=== PATIENT | male | born 1940 | race Hispanic/Latino ===

== ENCOUNTER 2019-06-26 16:29 | Inpatient (IN) | payer MEDICAID ==
[2019-06-26 17:25] LABS: Absolute Lymphocytes (CBC) 0.7 K/uL (0.7-4.9); Basophils % 0.6 % (0-1.3); Hematocrit 37.8 % (39.6-49.0); Lymphocytes % 11.4 % (15.3-44.8); MPV 8.8 fL (7.6-11.3); RBC Red Blood Cell Count 4.09 M/uL (4.33-5.43)
[2019-06-26 17:29] LABS: Protime INR 1.1
[2019-06-26 17:45] LABS: Bilirubin Direct 0.2 mg/dL (0-0.2); Bilirubin Total 0.6 mg/dL (0.2-1.0); Magnesium 2.3 mg/dL (1.8-2.4); Protein, Total 6.8 g/dL (6.4-8.2); Troponin (Emerg Dept Use Only) 0.02 ng/mL (0.0-0.045)
--- NOTE | 2019-06-26 17:56 | RAD REPORT ---
EXAM DESCRIPTION: RAD - Chest Single View - 06/26/2019 5:10 pm CLINICAL HISTORY: CHEST PAIN COMPARISON: No comparisons TECHNIQUE: AP portable chest image was obtained 06/26/2019 5:10 pm . FINDINGS: Lungs are clear. Heart size is upper normal. Vasculature within normal limits. Single lead pacemaker/ defibrillator in place. No measurable pleural effusion and no pneumothorax. No acute bony abnormality seen. No acute aortic findings suspected. IMPRESSION: No acute cardiopulmonary process. Heart size upper normal with no other findings of failure or volume overload.
--- NOTE | 2019-06-26 18:52 | RAD REPORT ---
EXAM DESCRIPTION: CT - Chest Abdomen Pelvis W Cont - 06/26/2019 6:37 pm CLINICAL HISTORY: Right-sided chest pain, right-sided flank and abdomen pain COMPARISON: Chest film June 26 TECHNIQUE: Following dynamic enhancement using 100 milliliters nonionic IV contrast, axial imaging o f the chest, abdomen and pelvis was performed. Biphasic technique was utilized through the abdomen. Oral contrast was administered. All CT scans are performed using dose optimization technique as appropriate and may include automated exposure control or mA/KV adjustment according to patient size. FINDINGS: Minimal bilateral pleural effusions are present with a minimal amount of adjacent atelecta sis. No mass or consolidations seen. No pleural effusion, pleural thickening or pneumothorax. No sign ificant aortic or pulmonary arterial tree finding. Mediastinal and hilar regions show no mass or abno rmal lymphadenopathy. No chest wall mass or axillary lymphadenopathy. The liver, spleen and pancreas show no suspicious findings. Gallbladder and biliary tree are unremark able. Gallstones can be occult on CT imaging. No hydronephrosis present. No obstructing or nonobstructing calculi seen. A few small patchy areas of diminished enhancement are noted in the upper right kidney. Left kidney shows very pronounced dimini shed enhancement throughout the majority of the left renal parenchyma. No mass lesion identifiable. T here is slight thickening and enhancement of the rodríguez of the left renal pelvis. No urinary bladder w all thickening or enhancement seen. Prostatectomy surgical changes are noted. No adrenal abnormalitie s. The exam was not a dedicated CT angio study. Both renal arteries appear to enhance normally far into the renal parenchyma. Overall atherosclerotic disease is relatively mild for the patient's age. No gastric dilatation or gastric wall thickening. No dilated large or small bowel loops. No appendici tis findings. Patient has pronounced diverticulosis without diverticulitis. No free air or pneumatosi s. Trace amount of free fluid in the dependent portion of the pelvis. No mass or bulky lymphadenopathy. Left inguinal hernia changes are present without an acute component . Disc and bone degenerative changes are present. No acute or destructive bone process. No significant vascular findings. IMPRESSION: Very significant abnormally diminished enhancement throughout most of the left renal par enchyma with much smaller areas of abnormal enhancement in the right kidney. Findings are most likely mild right-side and pronounced left-sided pyelonephritis along with mild lef t ureteritis. Correlation is needed with any clinical or laboratory findings. Both kidneys appear to have a normal arterial tree enhancement pattern. Ischemic etiology for the dim inished perfusion is not suspected. Small bilateral pleural effusions are present with minimal atelectasis.
[2019-06-26] MEDS ORDERED: CEFTRIAXONE/SWI 1gm 1 GM/10 ML SYR ONE (19:14)
--- NOTE | 2019-06-26 19:20 | EDPHYS ---
Physician Documentation [facility] Name: Raymundo Maldonado Age: 78 yrs Sex: Male : 1940 Arrival Date: 06/26/2019 Time: 16:32 Bed 2 Private MD: ED Physician Jimmy Ordaz HPI: 06/26 17:55 This 78 yrs old Male presents to ER via Ambulatory with complaints of kdr Shortness Of Breath, Low Back Pain, Irregular Pulse. 17:55 The patient went to [facility] with c/o flank pain and weakness, dark stools. kdr Onset: The symptoms/episode began/occurred at an unknown time. Severity of symptoms: At their worst the symptoms were mild in the emergency department the symptoms are unchanged. The patient has not experienced similar symptoms in the past. It is unknown whether or not the patient has recently seen a physician. Historical: - Allergies: 16:48 No Known Allergies; ca1 - Home Meds: 18:01 metoprolol succinate 25 mg oral Tb24 1 tab once daily [Active]; atorvastatin 40 mg oral em tab 1 tab once daily [Active]; amiodarone 100 mg Oral tab 1 tab once daily [Active]; - Immunization history:: Adult Immunizations not up to date. - Coronavirus screen:: The patient has NOT traveled to [place], [place], or [place] in the past 14 days. The patient has NOT had contact with known/suspected case of Coronavirus?. - Social history:: Smoking status: Patient denies any tobacco usage or history of. - Ebola Screening: : Patient negative for fever greater than or equal to 101.5 degrees Fahrenheit, and additional compatible Ebola Virus Disease symptoms Patient denies exposure to infectious person Patient denies travel to an Ebola-affected area in the 21 days before illness onset No symptoms or risks identified at this time. ROS: 17:55 Constitutional: Negative for fever, chills, and weight loss, Eyes: Negative for injury, kdr pain, redness, and discharge, ENT: Negative for injury, pain, and discharge, Neck: Negative for injury, pain, and swelling, MS/Extremity: Negative for injury and deformity, Skin: Negative for injury, rash, and discoloration, Neuro: Negative for headache, weakness, numbness, tingling, and seizure activity. Psych: Negative for depression, anxiety, suicide ideation, homicidal ideation, and hallucinations, Allergy/Immunology: Negative for hives, rash, and allergies, Endocrine: Negative for neck swelling, polydipsia, polyuria, polyphagia, and marked weight changes, Hematologic/Lymphatic: Negative for swollen nodes, abnormal bleeding, and unusual bruising. 17:55 Cardiovascular: Positive for Chest discomfort. Exam: 17:51 Constitutional: This is a well developed, well nourished patient who is awake, alert, kdr and in no acute distress. Head/Face: Normocephalic, atraumatic. Eyes: Pupils equal round and reactive to light, extra-ocular motions intact. Lids and lashes normal. Conjunctiva and sclera are non-icteric and not injected. Cornea within normal limits. Periorbital areas with no swelling, redness, or edema. Neck: Trachea midline, no thyromegaly or masses palpated, and no cervical lymphadenopathy. Supple, full range of motion without nuchal rigidity, or vertebral point tenderness. No Meningismus. Chest/axilla: Normal chest wall appearance and motion. Nontender with no deformity. No lesions are appreciated. Respiratory: Lungs have equal breath sounds bilaterally, clear to auscultation and percussion. No rales, rhonchi or wheezes noted. No increased work of breathing, no retractions or nasal flaring. Abdomen/GI: Soft, non-tender, with normal bowel sounds. No distension or tympany. No guarding or rebound. No evidence of tenderness throughout. Back: No spinal tenderness. No costovertebral tenderness. Full range of motion. Skin: Warm, dry with normal turgor. Normal color with no rashes, no lesions, and no evidence of cellulitis. MS/ Extremity: Pulses equal, no cyanosis. Neurovascular intact. Full, normal range of motion. Neuro: Awake and alert, GCS 15, oriented to person, place, time, and situation. Cranial nerves II-XII grossly intact. Motor strength 5/5 in all extremities. Sensory grossly intact. Cerebellar exam normal. Normal gait. Psych: Awake, alert, with orientation to person, place and time. Behavior, mood, and affect are within normal limits. 17:51 Cardiovascular: Rate: bradycardic, Rhythm: Paced. Vital Signs: 16:48 BP 132 / 41; Pulse 42; Resp 17 S; Temp 97.1(TE); Pulse Ox 99% on R/A; ca1 17:30 BP 155 / 72; Pulse 41; Resp 18; Pulse Ox 99% on R/A; em 18:21 BP 156 / 58; Pulse 40; Resp 19; Pulse Ox 99% on R/A; Pain 0/10; em 20:18 BP 155 / 61; Pulse 42; Resp 18; Temp 97.6; Pulse Ox 100% ; ea 20:58 BP 149 / 87; Pulse 50; Resp 18; Pulse Ox 100% ; ea 21:30 BP 156 / 50; Pulse 40; Resp 18; Temp 97.2; Pulse Ox 99% on R/A; ea 22:15 BP 163 / 64; Pulse 41; Resp 18; Pulse Ox 98% on R/A; Pain 0/10; ea MDM: 17:51 Data reviewed: vital signs, nurses notes, lab test result(s), radiologic studies. kdr Counseling: I had a detailed discussion with the patient and/or guardian regarding: the historical points, exam findings, and any diagnostic results supporting the discharge/admit diagnosis, lab results, radiology results. 19:19 Patient medically screened. [facility] 06/26 16:53 Order name: Basic Metabolic Panel; Complete Time: 17:58 kdr 06/26 16:53 Order name: CBC with Diff; Complete Time: 17:58 kdr 06/26 16:53 Order name: LFT's; Complete Time: 17:58 kdr 06/26 16:53 Order name: Magnesium; Complete Time: 17:58 kdr 06/26 16:53 Order name: NT PRO-BNP; Complete Time: 17:58 kdr 06/26 16:53 Order name: PT-INR; Complete Time: 17:58 kdr 06/26 16:53 Order name: Troponin (emerg Dept Use Only); Complete Time: 17:58 kdr 06/26 19:07 Order name: Urine Culture kdr 06/26 20:12 Order name: Urinalysis W/Microscopic EDMS 06/26 20:19 Order name: CBC with Automated Diff EDMS 06/26 20:19 Order name: CBC with Automated Diff EDMS 06/26 20:19 Order name: Comprehensive Metabolic Panel EDMS 06/26 20:19 Order name: Comprehensive Metabolic Panel EDMS 06/26 20:19 Order name: T4 Free EDMS 06/26 16:53 Order name: XRAY Chest (1 view); Complete Time: 18:37 [facility] 06/26 16:53 Order name: EKG; Complete Time: 16:54 [facility] 06/26 16:53 Order name: Cardiac monitoring; Complete Time: 17:31 [facility] 06/26 16:53 Order name: EKG - Nurse/Tech; Complete Time: 17:32 [facility] 06/26 16:53 Order name: IV Saline Lock; Complete Time: 17:32 [facility] 06/26 16:53 Order name: Labs collected and sent; Complete Time: 17:42 [facility] 06/26 16:53 Order name: O2 Per Protocol; Complete Time: 17:42 [facility] 06/26 18:05 Order name: Chest Abdomen Pelvis W Cont; Complete Time: 19:04 [facility] 06/26 20:19 Order name: CONS Pharmacy Consult [facility] 06/26 20:19 Order name: CONS Physician Consult [facility] 06/26 20:19 Order name: Heart Healthy [facility] 06/26 20:19 Order name: T4 Free [facility] 06/26 20:19 Order name: Thyroid Stimulating Hormone [facility] 06/26 20:19 Order name: Thyroid Stimulating Hormone [facility] 06/26 16:53 Order name: O2 Sat Monitoring; Complete Time: 17:42 kdr EC:51 Rate is 46 beats/min. Rhythm is regular, Sinus bradycardia with No ectopy, Ventricular kdr paced. Clinical impression: Complete heart block and Ventricular Paced Rhythm. Administered Medications: 19:24 Drug: Rocephin - (cefTRIAXone) 1 grams Route: IVPB; Infused Over: 30 mins; Site: right ea antecubital; 19:48 Follow up: Response: No adverse reaction; IV Status: Completed infusion ea Disposition: 06/26/19 19:19 Hospitalization ordered by Vilma Yang for Inpatient Admission. Preliminary diagnosis are Chest pain on breathing, Pyelonephitis. - Bed requested for Telemetry/MedSurg (Inpatient). - Status is Inpatient Admission. ea - Condition is Fair. - Problem is new. - Symptoms have improved. UTI on Admission? Yes Signatures: Dispatcher [employer] [facility] Jimmy Ordaz MD MD kdr Munoz, Edgar, RN Felicita Lewis RN Queenie Paige RN RN ea Acob, Cheryl RN RN ca1 Corrections: (The following items were deleted from the chart) 18:05 18:00 Chest Abdomen W/ Con+CT.RAD.BRZ ordered. EDMS EDMS 21:25 19:19 Hospitalization Ordered by Vilma Yang MD for Inpatient Admission. Preliminary cg diagnosis is Chest pain on breathing; Pyelonephitis. Bed requested for Telemetry/MedSurg (Inpatient). Status is Inpatient Admission. Condition is Fair. Problem is new. Symptoms have improved. UTI on Admission? Yes. [facility] 22:24 21:25 06/26/2019 19:19 Hospitalization Ordered by Vilma Yang MD for Inpatient ea Admission. Preliminary diagnosis is Chest pain on breathing; Pyelonephitis. Bed requested for Telemetry/MedSurg (Inpatient). Status is Inpatient Admission. Condition is Fair. Problem is new. Symptoms have improved. UTI on Admission? Yes. cg
--- NOTE | 2019-06-26 19:20 | ER ---
Nurse's Notes [facility] Name: Raymundo Maldonado Age: 78 yrs Sex: Male : 1940 Arrival Date: 06/26/2019 Time: 16:32 Bed 2 Private MD: Diagnosis: Chest pain on breathing;Pyelonephitis Presentation: 06/26 16:42 Presenting complaint: Patient states: Went ot [facility] for R sided ca1 flank pain. Sent to the ER for HR of 41 and BP 149/61. Pt c/o chest discomfort, dizzy, lightheaded, and very weak. Reports N/V. Pt has a pacemaker. Transition of care: patient was not received from another setting of care. Onset of symptoms was June 26, 2019. Risk Assessment: Do you want to hurt yourself or someone else? Patient reports no desire to harm self or others. Initial Sepsis Screen: Does the patient meet any 2 criteria? No. Patient's initial sepsis screen is negative. Does the patient have a suspected source of infection? No. Patient's initial sepsis screen is negative. Care prior to arrival: None. 16:42 Method Of Arrival: Ambulatory ca1 16:42 Acuity: GREGORY 2 ca1 Historical: - Allergies: 16:48 No Known Allergies; ca1 - Home Meds: 18:01 metoprolol succinate 25 mg oral Tb24 1 tab once daily [Active]; atorvastatin 40 mg oral em tab 1 tab once daily [Active]; amiodarone 100 mg Oral tab 1 tab once daily [Active]; - Immunization history:: Adult Immunizations not up to date. - Coronavirus screen:: The patient has NOT traveled to [place], [place], or [place] in the past 14 days. The patient has NOT had contact with known/suspected case of Coronavirus?. - Social history:: Smoking status: Patient denies any tobacco usage or history of. - Ebola Screening: : Patient negative for fever greater than or equal to 101.5 degrees Fahrenheit, and additional compatible Ebola Virus Disease symptoms Patient denies exposure to infectious person Patient denies travel to an Ebola-affected area in the 21 days before illness onset No symptoms or risks identified at this time. Screenin:00 Abuse screen: Denies threats or abuse. Nutritional screening: No deficits noted. em Tuberculosis screening: No symptoms or risk factors identified. Fall Risk None identified. Assessment: 17:00 General: Appears in no apparent distress. comfortable, Behavior is calm, cooperative, em Denies fever. Pain: Complains of pain in chest. Neuro: Level of Consciousness is awake, alert, obeys commands, Oriented to person, place, time, situation, Appropriate for age Reports dizziness. Cardiovascular: Reports chest pain, nausea, Rhythm is sinus bradycardia. Respiratory: Airway is patent Respiratory effort is even, unlabored, Breath sounds are clear bilaterally. Denies cough. GI: Abdomen is flat, Reports bloating, nausea, dark stools for 4-5 days. Derm: Skin is intact, is thin, Skin is pink, warm \T\ dry. Musculoskeletal: Capillary refill < 3 seconds, Range of motion: intact in all extremities. 17:56 Reassessment: Patient appears in no apparent distress at this time. Patient and/or em family updated on plan of care and expected duration. Pain level reassessed. Patient is alert, oriented x 3, equal unlabored respirations, skin warm/dry/pink. 19:10 General: Appears comfortable, Behavior is appropriate for age. Pain: Denies pain. ea Neuro: Level of Consciousness is awake, alert, obeys commands, Oriented to person, place, time, situation. Cardiovascular: Patient's skin is warm and dry. Respiratory: Airway is patent Respiratory effort is even, unlabored. Derm: Skin is pink, warm \T\ dry. Musculoskeletal: Circulation, motion, and sensation intact. 20:18 Reassessment: Patient and/or family updated on plan of care and expected duration. Pain ea level reassessed. Patient is alert, oriented x 3, equal unlabored respirations, skin warm/dry/pink. 20:57 Reassessment: Patient and/or family updated on plan of care and expected duration. Pain ea level reassessed. Patient is alert, oriented x 3, equal unlabored respirations, skin warm/dry/pink. Awaiting on room assignment. 21:50 Reassessment: Patient and/or family updated on plan of care and expected duration. Pain ea level reassessed. Patient is alert, oriented x 3, equal unlabored respirations, skin warm/dry/pink. 22:23 Reassessment: Patient and/or family updated on plan of care and expected duration. Pain ea level reassessed. Patient is alert, oriented x 3, equal unlabored respirations, skin warm/dry/pink. Pt admitted to second floor, left ED via wheelchair per tech, pt tolerating well. No s/s of pain or discomfort noted at this time. Vital Signs: 16:48 BP 132 / 41; Pulse 42; Resp 17 S; Temp 97.1(TE); Pulse Ox 99% on R/A; ca1 17:30 BP 155 / 72; Pulse 41; Resp 18; Pulse Ox 99% on R/A; em 18:21 BP 156 / 58; Pulse 40; Resp 19; Pulse Ox 99% on R/A; Pain 0/10; em 20:18 BP 155 / 61; Pulse 42; Resp 18; Temp 97.6; Pulse Ox 100% ; ea 20:58 BP 149 / 87; Pulse 50; Resp 18; Pulse Ox 100% ; ea 21:30 BP 156 / 50; Pulse 40; Resp 18; Temp 97.2; Pulse Ox 99% on R/A; ea 22:15 BP 163 / 64; Pulse 41; Resp 18; Pulse Ox 98% on R/A; Pain 0/10; ea ED Course: 16:32 Patient arrived in ED. as 16:46 Triage completed. ca1 16:48 Arm band placed on right wrist. ca1 16:52 Jimmy Ordaz MD is Attending Physician. kdr 17:00 Patient has correct armband on for positive identification. Placed in gown. Bed in low em position. Call light in reach. Side rails up X2. ekg monitor tech on. Pulse ox on. NIBP on. 17:10 XRAY Chest (1 view) In Process Unspecified. EDMS 17:15 Initial lab(s) drawn, by me, sent to lab. Inserted saline lock: 20 gauge in right em forearm, using aseptic technique. Blood collected. 17:24 Evan Hagan, RN is Primary Nurse. em 18:37 Chest Abdomen Pelvis W Cont In Process Unspecified. EDMS 19:18 Vilma Yang MD is Hospitalizing Provider. kdr 20:58 No provider procedures requiring assistance completed. Patient admitted, IV remains in ea place. Administered Medications: 19:24 Drug: Rocephin - (cefTRIAXone) 1 grams Route: IVPB; Infused Over: 30 mins; Site: right ea antecubital; 19:48 Follow up: Response: No adverse reaction; IV Status: Completed infusion kerri Outcome: 19:19 Decision to Hospitalize by Provider. kdr 20:58 Instructed on the need for admit. kerri 22:18 Admitted to Med/surg accompanied by tech, room 225, with chart, Report called to Mandi manning RN 22:18 Condition: stable 22:24 Patient left the ED. kerri Signatures: Dispatcher [employer] EDJimmy Guzman MD MD kdr Munoz, Edgar, RN RN Chantel Vergara Elena, RN RN ea Acob, Cheryl RN RN ca1
[2019-06-26] MEDS ORDERED: ACETAMINOPHEN 500 MG TAB PO PRN (20:13)
[2019-06-26] MEDS ORDERED: MORPHINE 4 MG/ML SYR IV PRN (20:13)
[2019-06-26] MEDS: NA CHLORIDE 0.9% 1,000 ML IV SCH (23:48)
[2019-06-27 00:08] VITALS: BMI 25.0
[2019-06-27 01:57] LABS: Urine Appearance CLEAR; Urine Bilirubin NEGATIVE (NEG); Urine Blood TRACE (NEG); Urine Color YELLOW; Urine Glucose NEGATIVE (NEG); Urine Protein NEGATIVE (NEG); Urine Specific Gravity >=1.030 (1.005-1.030); Urine Urobilinogen 0.2 mg/dL (0.2-1.0)
[2019-06-27 03:39] LABS: Urine Bacteria <20 /HPF (NONE SEEN); Urine Culture Reflex Order NOT NEEDED; Urine RBC <5 /HPF (NONE SEEN)
[2019-06-27] MEDS ORDERED: PNEUMOCOCCAL VACCINE 0.5 ML IMVAC ONE (06:00)
[2019-06-27] MEDS ORDERED: INFLUENZA VACCINE (for 3y+) 0.5 ML DOSE IMVAC ONE (06:00)
[2019-06-27 06:18] LABS: Absolute Lymphocytes (CBC) 0.6 K/uL (0.7-4.9); Basophils % 0.7 % (0-1.3); Lymphocytes % 9.4 % (15.3-44.8); RBC Red Blood Cell Count 3.81 M/uL (4.33-5.43)
[2019-06-27 07:31] LABS: Albumin 2.6 g/dL (3.4-5.0); Bilirubin Total 0.4 mg/dL (0.2-1.0); Potassium 4.2 mmol/L (3.5-5.1); Protein, Total 6.3 g/dL (6.4-8.2)
[2019-06-27 07:35] LABS: Thyroid Stimulating Hormone 4.13 uIU/mL (0.360-3.740)
--- NOTE | 2019-06-27 07:51 | P.HP ---
Certification for Inpatient Patient admitted to: Inpatient With expected LOS: >2 Midnights Patient will require the following post-hospital care: None Practitioner: I am a practitioner with admitting privileges, knowledge of patient current condition, hospital course, and medical plan of care. Services: Services provided to patient in accordance with Admission requirements found in Title 42 Section 412.3 of the Code of Federal Regulations Patient History Date of Service: 06/26/19 Reason for admission: Bradyarrhythmia/pyelonephritis History of Present Illness: Patient is an 78-year-old gentleman who came into the hospital after being seen at the [place] [facility] with right-sided flank tenderness. Patient has been feeling weak and fatigued. In the clinic they found him to be bradycardic with flank tenderness. He was sent to the emergency room. In the ER he was running with a heart rate in the mid to upper 40s. Patient is on amiodarone and Toprol- XL. These medications may need to be adjusted. He also had the flank tenderness and he had a dedicated CT of the chest abdomen and pelvis. This revealed pyelonephritis bilaterally. However, his urine analysis does not really corroborates that he has any infection in the genitourinary system. Will get a Nephrology consultation and a cardiology consultation for his multiple medical issues on this admission. He will be admitted for an inpatient stay as well. Will go ahead and start him on IV antibiotics at this time. Hold his amiodarone and his Toprol XL. Monitor him on telemetry. His blood pressure is stable and he is not having any secondary issues related to his bradyarrhythmia. Will monitor him on telemetry closely. Allergies No Known Allergies Allergy (Verified 06/26/19 23:46) Home Medications: Amiodarone HCl 1 tab PO DAILY 06/27/19 Atorvastatin Calcium 1 tab PO BEDTIME 06/27/19 Metoprolol Succinate [Toprol Xl] 1 tab PO DAILY 06/27/19 Rivaroxaban [Xarelto*] 1 tab PO BID 06/27/19 - Past Medical/Surgical History Has patient received pneumonia vaccine in the past: No Diabetic: No -: HTN -: Pacemaker -: Prostate surg - Social History Smoking Status: Never smoker Alcohol use: No CD- Drugs: No Caffeine use: No Place of Residence: Home Review of Systems 10-point ROS is otherwise unremarkable Physical Examination - Vital Signs Temperature: 98.8 F Blood Pressure: 138/60 Pulse: 40 Respirations: 16 Pulse Ox (%): 97 - Physical Exam General: Alert, In no apparent distress, Oriented x2 HEENT: Atraumatic, PERRLA, Mucous membr. moist/pink, EOMI, Sclerae nonicteric Neck: Supple, 2+ carotid pulse no bruit, No LAD, Without JVD or thyroid abnormality Respiratory: Clear to auscultation bilaterally, Normal air movement Cardiovascular: Other (bradycardia with systolic ejection murmur 2/6) Gastrointestinal: Normal bowel sounds, Soft and benign, Non-distended, Tenderness (Flank tenderness) Musculoskeletal: No clubbing, No swelling, No tenderness Integumentary: No rashes Neurological: Normal gait, Normal speech, Normal tone, Sensation intact, Cranial nerves 3-12 intact, Normal affect, Abnormal strength Lymphatics: No axilla or inguinal lymphadenopathy - Studies Laboratory Data (last 24 hrs) 06/26/19 17:15: PT 12.9 H, INR 1.10 06/26/19 17:15: WBC 6.2, Hgb 12.5 L, Hct 37.8 L, Plt Count 279 06/26/19 17:15: Sodium 137, Potassium 4.0, BUN 20 H, Creatinine 1.36 H, Glucose 95, Magnesium 2.3, Total Bilirubin 0.6, AST 28, ALT 45, Alkaline Phosphatase 79 Assessment & Plan - Problems (Diagnosis) (1) Pyelonephritis Current Visit: Yes Status: Acute (2) Bradycardia Current Visit: Yes Status: Acute (3) Generalized weakness Current Visit: Yes Status: Acute (4) Acute kidney injury Current Visit: Yes Status: Acute (5) History of pacemaker Current Visit: Yes Status: Acute - Plan Plan: 1. Continue with IV hydration 2. Cardiology and Nephrology consultation 3. IV antibiotic therapy 4. Monitor on telemetry 5. Monitor blood pressure closely 6. Hold amiodarone and Toprol pending cardiology evaluation 7. Check thyroid studies 8. Echocardiogram 9. Urine with microscopy 10. GI and DVT prophylaxis Discharge Plan: Home Plan to discharge in: Greater than 2 days - Advance Directives Does patient have a Living Will: No Does patient have a Durable POA for Healthcare: No - Code Status/Comfort Care Code Status Assessed: Yes Code Status: Full Code Critical Care: No Time Spent Managing PTS Care (In Minutes): 45
[2019-06-27] MEDS ORDERED: CEFTRIAXONE/SWI 1gm 1 GM/10 ML SYR IV SCH (09:00)
--- NOTE | 2019-06-27 09:40 | EKG ---
Test Date: 2019-06-26 Test Time: 16:40:47 Gang Mower Operator: GAURI MEASUREMENT RESULTS: Intervals: Rate: 46 CA: QRSD: 180 QT: 696 QTc: 609 [place]: P: 68 CA: QRS: -63 T: 99 INTERPRETIVE STATEMENTS: Paced rhythm with underlying afib and slow response. Abnormal ECG No previous ECG available for comparison Electronically Signed On 06-27-19 09:39:43 SHIPPING AND RECEIVING SPECIALIST by Alexandro Herndon
[2019-06-27] MEDS: LEVOTHYROXINE SOD 0.025 MG TAB PO SCH (10:01)
[2019-06-27] MEDS: NA CHLORIDE 0.9% 1,000 ML IV SCH ×3 (10:20→23:40)
--- NOTE | 2019-06-27 11:56 | CON ---
Mr. Devante Maldonado is 78 and he came to the hospital and was seen in the emergency room yesterday. Ap parently, he had flank pain and was sent from the [facility]. He had some abdominal pain and fl ank pain. To me, he denies chest pain. He is being treated for pyelonephritis. It seems to be a fi nding mostly on the CAT scan. His urine looks mildly infected. Microbiology is pending. He is bein g treated with ceftriaxone. I am consulted not for that, but because the patient is very bradycardic . He apparently has a history of atrial fib and his outpatient medications had been both metoprolol and amiodarone. Also, rivaroxaban 15 mg b.i.d. The patient does not really tell us he had a blood c lot. Actually, the history is very poor from the patient, but he is on a dose of Xarelto that would be appropriate for somebody who had just had a pulmonary embolus or deep vein thrombosis. I do not h ave any record of that and the patient is unable to tell me. We do not even know how long he has bee n on the Xarelto. It should be no longer than 3 weeks at that dose. The patient denies any history of defibrillator placement or heart surgery or stents in his heart. Physical Examination: General: He is 5 feet 6 inches, 154 pounds. Alert, oriented, pleasant, not in distress. Lungs: Clear. Heart: Bradycardic, otherwise within normal limits. Abdomen: Soft. Extremities: No edema, cyanosis, clubbing. He is in marked sinus bradycardia. I agree with withholding both metoprolol and amiodarone. His TSH is slightly elevated. Certainly, his thyroid dysfunction is not severe enough that it would be the cause of the bradycardia but thyroid dysfunction is common in people taking amiodarone and we should probably supplement his thyroid gland giving levothyroxine. Eventually, he could probably get back o n amiodarone but not metoprolol and probably continue with an appropriate dose of Xarelto, which base d on his renal function would be 20 mg once a day rather than 15 b.i.d. Thank you very much for your kind referral of Mr. Low. I will follow him with you. JENNIFER/JESENIA Voice ID: [id number] Report ID: [id number]
--- NOTE | 2019-06-27 12:04 | P.PN ---
Subjective Date of Service: 06/27/19 Chief Complaint: Bradyarrhythmia/pyelonephritis Patient is complaining of mild left flank pain. He states the pain has significantly improved. He has been AFib. His renal function has improved. He has good appetite. He has no other complaint. Physical Examination - Vital Signs Temperature: 99.5 F Blood Pressure: 124/52 Pulse: 45 Respirations: 18 Pulse Ox (%): 92 - Physical Exam General: Alert, In no apparent distress, Oriented x3 HEENT: Normocephalic, Mucous membr. moist/pink, Sclerae nonicteric Neck: Supple, JVD not distended Respiratory: Clear to auscultation bilaterally, Normal air movement Cardiovascular: No edema, Normal S1 S2, Irregular heart rate/rhythm Gastrointestinal: Normal bowel sounds, Soft and benign, Non-distended, No tenderness, Other (No flank tenderness.) Musculoskeletal: No swelling Integumentary: No rashes Neurological: Normal speech, Normal strength at 5/5 x4 extr - Studies Laboratory Data (last 24 hrs) 06/26/19 17:15: PT 12.9 H, INR 1.10 06/26/19 17:15: WBC 6.2, Hgb 12.5 L, Hct 37.8 L, Plt Count 279 06/26/19 17:15: Sodium 137, Potassium 4.0, BUN 20 H, Creatinine 1.36 H, Glucose 95, Magnesium 2.3, Total Bilirubin 0.6, AST 28, ALT 45, Alkaline Phosphatase 79 Assessment And Plan - Current Problems (Diagnosis) (1) Acute kidney injury Current Visit: Yes Status: Acute (2) Bradycardia Current Visit: Yes Status: Acute (3) History of pacemaker Current Visit: Yes Status: Acute (4) Pyelonephritis Current Visit: Yes Status: Acute - Plan Patient seen by nephrology. Renal ultrasound has been ordered. Continue IV Rocephin Continue to hold amiodarone and metoprolol. Cardiology input appreciated. Tsh is mildly elevated indicating some degree of hypothyroidism. Patient started on low dose Synthroid. IV hydration. Monitor renal function.
--- NOTE | 2019-06-27 15:19 | RAD REPORT ---
EXAM DESCRIPTION: US - Renal Ultrasound-Complete - 06/27/2019 3:09 pm CLINICAL HISTORY: PYELONEPH Flank pain COMPARISON: Chest Abdomen Pelvis W Cont dated 06/26/2019 FINDINGS: Both kidneys are normal in size with retained corticomedullary differentiation. The right kidney measures 11.2 x 5.8 x 5.2 cm. No hydronephrosis, focal mass or perinephric fluid. The left kidney measures 10.6 x 4.9 x 4.4 cm. No hydronephrosis, focal mass or perinephric fluid. The urinary bladder is incompletely distended without gross abnormality seen. IMPRESSION: Unremarkable renal sonogram.
[2019-06-27] MEDS: levoFLOXacin 500 MG TAB PO SCH (16:18)
--- NOTE | 2019-06-27 20:02 | CON ---
Date of Consultation: 06/27/2019 Reason For Consultation: Pyelonephritis/abnormality finding on the CAT scan. History Of Present Illness: All the information has been obtained from the record as the patient do not speak [place]. We used the veneer trimmer, but the patient is hardly hearing. So, we used [employer] to translate for patient, apparently had history of cardiac arrhythmia, hypertension, prostate surgery. Patient was in his regular state of health, went to the clinic at [facility] complaining of left flank pain radiating to his groin and patient found to have bradycardia, sent to the emergency room. In t he emergency renal, primary workup showed abnormal parenchyma of both, but more prominent on the left side. For that reason, we have been consulted. Urinalysis did not show UTI. Patient denies any fe jack, but the patient complaining from nausea without vomiting. Patient denied take any nonsteroidal. Reviewing the record for the patient, patient's kidney function, creatinine 1.2 with GFR of 54. Home Medications: Include: 1.Amiodarone. 2.Atorvastatin. 3.Metoprolol. 4.Xarelto. Allergies: NO KNOWN DRUG ALLERGY. Past Medical History: Include: 1.Coronary artery disease. 2.Cardiac arrhythmia, status post pacemaker, on amiodarone. 3.Hypertension. 4.Prostate surgery. Past Surgical History: Include: 1.Prostate surgery. 2.Pacemaker placement. Social History: Denies smoking. Denies drinking. Denies drugs abuse. Review of Systems: Head and Neck: No red eye. No ear pain. GI: Has a flank pain. Has abdominal pain. Has nausea. No vomiting. : Has left flank pain radiating to the groin. No dysuria. Solid Waste Technician: Not applicable. Respiratory: No shortness of breath. Cardiovascular: Has bradycardia. Endocrine: No polydipsia. Skin: No rash. Neuro: No neuropathy. No weakness. Musculoskeletal: Generalized fatigue. Physical Examination: Vital Signs: When I saw the patient, blood pressure 138/60, pulse of 98, bradycardic generally up to 45. Heart: S1, S2. Regular. Abdomen: Soft, nontender. Extremities: No edema. Neurologic: Alert and oriented, nonfocal, difficulty hearing. Laboratory Data: Sodium 140, potassium 4.2, bicarb 24, BUN 26, creatinine 1.2. GFR of 54, calcium o f 8, albumin 2.6. WBC 6.5, H and H of 11.8/35, platelets of 266. Urinalysis, specific gravity above 1.030, negative for protein. Current Medications: In the hospital include: 1.Atorvastatin. 2.Ceftriaxone. 3.Levothyroxine. 4.Normal saline. Assessment And Plan: 1.Acute kidney injury secondary to prerenal, secondary to gastrointestinal loss secondary to nausea, vomiting. I agree with IV hydration and we will monitor. 2.Abnormal finding on the CAT scan. Urinalysis negative for infection. Possible infiltrative disea se. We will go ahead and repeat ultrasound and we will follow up. 3.Questionable gastroenteritis. I am going to discontinue ceftriaxone. Start the patient on Augmen tin and we will follow up culture. Start the patient on Levaquin and we will monitor the patient. 4.Chronic kidney disease secondary to hypertension, nephrosclerosis with acute kidney injury seconda ry to prerenal. We will follow up. RANI Voice ID: [id number] Report ID: [id number]
[2019-06-27] MEDS ORDERED: ATORVASTATIN 40 MG TAB PO SCH (21:00)
[2019-06-28 01:53] VITALS: O2SAT 95
[2019-06-28] MEDS: LEVOTHYROXINE SOD 0.025 MG TAB PO SCH (05:48)
[2019-06-28] MEDS: NA CHLORIDE 0.9% 1,000 ML IV SCH (05:49)
[2019-06-28 06:22] LABS: Albumin 2.6 g/dL (3.4-5.0); Phosphorus 1.8 mg/dL (2.5-4.9); Potassium 4.2 mmol/L (3.5-5.1)
[2019-06-28] MEDS: levoFLOXacin 500 MG TAB PO SCH (08:33)
[2019-06-28 10:10] VITALS: BP 170/68; TEMP 98
--- NOTE | 2019-06-28 13:05 | P.PN ---
Subjective Date of Service: 06/28/19 Chief Complaint: Bradyarrhythmia/pyelonephritis Patient is not complaining of abdominal pain. Also reports several days of black stool. He has been AFib. His renal function has improved. He has good appetite. Physical Examination - Vital Signs Temperature: 98 F Blood Pressure: 170/68 Pulse: 40 Respirations: 18 Pulse Ox (%): 95 - Physical Exam General: Alert, In no apparent distress, Oriented x3 HEENT: Mucous membr. moist/pink, Sclerae nonicteric Neck: Supple, JVD not distended Respiratory: Clear to auscultation bilaterally, Normal air movement Cardiovascular: No edema, Regular rate/rhythm, Normal S1 S2, Other (Bradycardic) Capillary refill: <2 Seconds Gastrointestinal: Normal bowel sounds, Soft and benign, Non-distended, No tenderness Musculoskeletal: No swelling, No erythema Integumentary: No rashes Neurological: Normal speech, Normal strength at 5/5 x4 extr Assessment And Plan - Current Problems (Diagnosis) (1) Acute kidney injury Current Visit: Yes Status: Acute (2) Bradycardia Current Visit: Yes Status: Acute (3) History of pacemaker Current Visit: Yes Status: Acute (4) Pyelonephritis Current Visit: Yes Status: Acute (5) Chronic atrial fibrillation Current Visit: Yes Status: Acute - Plan Patient seen by nephrology. Renal ultrasound reviewed and reported as unremarkable. Antibiotics used to oral levaquin. Patient is slated for 7 days of treatment. Continue to hold amiodarone and metoprolol given persistent bradycardia Cardiology input appreciated. Tsh is mildly elevated indicating some degree of hypothyroidism. Patient started on low dose Synthroid. Renal function has improved. Discontinue IV fluid.
--- NOTE | 2019-06-28 13:35 | P.DS ---
Admission Date: 06/26/19 Discharge Date: 06/28/19 Disposition: ROUTINE DISCHARGE Discharge Condition: FAIR Reason for Admission: Bradyarrhythmia/pyelonephritis Consultations: Cardiology-Dr. Herndon Nephrology-Dr. Ward. - Problems (1) Acute kidney injury Current Visit: Yes Status: Acute (2) Bradycardia Current Visit: Yes Status: Acute (3) History of pacemaker Current Visit: Yes Status: Acute (4) Pyelonephritis Current Visit: Yes Status: Acute (5) Chronic atrial fibrillation Current Visit: Yes Status: Acute Brief History of Present Illness: 78-year-old Israeli-speaking gentleman with a history of chronic atrial fibrillation on amiodarone, metoprolol and Xarelto anticoagulation was referred from [facility] to the ED due to right flank tenderness. CT abdomen and pelvis done in the ED reported findings suggestive of bilateral pyelonephritis. Her urinalysis did not indicate the presence of UTI. Also noted patient was bradycardic with heart rate in the 40s. He was afebrile and no leukocytosis. His serum creatinine was elevated. Patient was admitted for further management. Hospital Course: Patient was hydrated with IV normal saline and treated with IV Rocephin. Urine culture yielded no growth. He was seen and evaluated by nephrology, renal ultrasound done was unremarkable. Other work up for infiltrative kidney disease were requested and the results are pending to be followed. Patient was also seen and evaluated by cardiology, his amiodarone and metoprolol were discontinued due to bradycardia. Noted patient was taking Xarelto 15 mg twice a day. He stated he has been taking the stools for about 3-4 months. Given his current kidney function, Xarelto 20 mg daily was recommended. Patient complained of dark colored stool by his stool for occult blood was negative. No active bleeding. Patient stated his symptoms have resolved. His serum creatinine improved to normal. He is deemed clinically stable for discharged. He is discharged with oral Levaquin to complete 7 days of treatment for UTI. He is informed to follow with Dr. Ward within 2-3 weeks. Vital Signs/Physical Exam: Temp Pulse Resp BP Pulse Ox 98 F 40 L 18 170/68 H 95 06/28/19 13:07 06/28/19 13:07 06/28/19 13:07 06/28/19 13:07 06/28/19 13:07 General: Alert, In no apparent distress, Oriented x3 HEENT: Mucous membr. moist/pink, Sclerae nonicteric Neck: Supple, JVD not distended Respiratory: Clear to auscultation bilaterally, Normal air movement Cardiovascular: No edema, Normal S1 S2, Other (Irregular, bradycardic) Capillary refill: <2 Seconds Gastrointestinal: Normal bowel sounds, Soft and benign, Non-distended, No tenderness, Other (No flank tenderness.) Musculoskeletal: No swelling, No erythema Integumentary: No rashes Neurological: Normal speech, Normal strength at 5/5 x4 extr Laboratory Data at Discharge: WBC 6.5 K/uL (4.3-10.9) 06/27/19 05:42 Hgb 11.8 g/dL (13.6-17.9) L 06/27/19 05:42 Hct 35.0 % (39.6-49.0) L 06/27/19 05:42 Plt Count 266 K/uL (152-406) 06/27/19 05:42 PT 12.9 SECONDS (9.5-12.5) H 06/26/19 17:15 INR 1.10 06/26/19 17:15 Sodium 140 mmol/L (136-145) 06/28/19 05:28 Potassium 4.2 mmol/L (3.5-5.1) 06/28/19 05:28 BUN 15 mg/dL (7-18) 06/28/19 05:28 Creatinine 1.30 mg/dL (0.55-1.3) 06/28/19 05:28 Glucose 87 mg/dL (74-106) 06/28/19 05:28 Phosphorus 1.8 mg/dL (2.5-4.9) L 06/28/19 05:28 Magnesium 2.3 mg/dL (1.8-2.4) 06/26/19 17:15 Total Bilirubin 0.4 mg/dL (0.2-1.0) 06/27/19 05:42 AST 19 U/L (15-37) 06/27/19 05:42 ALT 36 U/L (12-78) 06/27/19 05:42 Alkaline Phosphatase 68 U/L (45-117) 06/27/19 05:42 Home Medications: Atorvastatin Calcium 1 tab PO BEDTIME 06/27/19 Levothyroxine Sodium 25 mcg PO DAILY #30 tablet 06/28/19 Rivaroxaban [Xarelto] 20 mg PO DAILY #30 tablet 06/28/19 levoFLOXacin [Levaquin*] 500 mg PO DAILY #5 tab 06/28/19 New Medications: levoFLOXacin [Levaquin*] 500 mg PO DAILY #5 tab Levothyroxine Sodium 25 mcg PO DAILY #30 tablet Rivaroxaban [Xarelto] 20 mg PO DAILY #30 tablet Diet: AHA Activity: Fall precautions Followup: Shivani Dyson MD [ACTIVE - CAN ADMIT] - 1-2 Weeks Alexandro Herndon MD [ACTIVE - CAN ADMIT] - 1 Week Time spent managing pt's care (in minutes): 40
--- NOTE | 2019-06-28 17:58 | PN ---
Date of Progress Note: 06/28/2019 Mr. Low is 78, was admitted initially with pyelonephritis and was found to have significant christy cardia. Today, his amiodarone has been held and beta-wilner has been held. Thyroid medication had been started. He is on Xarelto 20 mg daily. His heart rate today is in the 60. Continue present re gimen. He can go home whenever it is okay with Dr. Thurston. IGNACIO/JESENIA Voice ID: [id number] Report ID: [id number]
--- NOTE | 2019-06-29 02:17 | PN ---
Date of Progress Note: 06/28/2019 History: Patient was admitted with UTI. CT show abnormal infiltration for the kidney. Repeated ult rasound came within normal limit. Physical Examination: Vital Signs: When I saw the patient, blood pressure of 158/67, pulse of 88. Chest: Clear to auscultation. Heart: S1, S2, regular. Abdomen: Soft, nontender. Extremities: No edema. Imaging: Ultrasound within normal limit. Laboratory Data: H and H 11.8 and 35. Sodium 140, potassium 4.2 bicarb 25, BUN 15, creatinine 1.3, GFR of 53, calcium 8, magnesium 1.8. Assessment And Plan: 1.Hypertension, controlled, optimal. Continue current medication. 2.Abnormal finding on the CT. Repeat ultrasound did not show any infiltration. We are waiting for serum protein electrophoresis. We will follow up as outpatient. Patient cleared from the renal [facility] for discharge planning. To follow up in the office in 2-3 weeks. RANI Voice ID: [id number] Report ID: [id number]
[2019-07-02 06:06] LABS: Albumin, (SPE) 2.8 g/dL (3.8-4.8); Alpha-1-Globulins 0.3 g/dL (0.2-0.3); Alpha-2-Globulins 0.7 g/dL (0.5-0.9); INTERPRETATION REPORT
== END 2019-06-28 14:30 | disposition home or self-care (01) | DRG 690 ==
LOC: ER 16:29 → ERHOLD 20:37 → 2ND 22:01
PROVIDERS: ADMIT Hospitalist; ATTEND Internal Medicine
DX: N10 Acute pyelonephritis (principal); I48.20 Chronic atrial fibrillation, unspecified; N17.9 Acute kidney failure, unspecified; N18.9 Chronic kidney disease, unspecified; I12.9 Hypertensive chronic kidney disease with stage 1 through stage 4 chronic kidney disease, or unspecified chronic kidney disease; I25.10 Atherosclerotic heart disease of native coronary artery without angina pectoris; R53.1 Weakness; K52.9 Noninfective gastroenteritis and colitis, unspecified; Z95.0 Presence of cardiac pacemaker
CPT/HCPCS: 36415; 71045; 71260; 74177; 76770; 80048; 80053; 80069; 80076; 81001; 82274; 83735; 83880; 84165; 84439; 84443; 84484; 85025; 85610; 87086; 87088; 93005; 96365; 99285; J0696; J7030; Q9967

== ENCOUNTER 2019-09-06 18:22 | Observation (INO) | payer MEDICAID, SELFPAY ==
--- OUTSIDE RECORDS SUMMARY | 2019-09-06 18:25 | XMS REPORT ---
:1940 [address] [facility] t Address [facility] [place] [address] Care Team Providers Name Role Phone Unavailable Unavailable Unavailable Problems This patient has no known problems. Allergies, Adverse Reactions, Alerts This patient has no known allergies or adverse reactions. Medications This patient has no known medications.
[2019-09-06 19:14] LABS: Absolute Lymphocytes (CBC) 1.1 K/uL (0.7-4.9); Basophils % 0.3 % (0-1.3); Lymphocytes % 15.1 % (15.3-44.8); MPV 9.2 fL (7.6-11.3); RBC Red Blood Cell Count 4.14 M/uL (4.33-5.43)
[2019-09-06 19:23] LABS: Protime INR 1.24
[2019-09-06 19:33] LABS: ALT/SGPT 22 U/L (12-78); AST/SGOT 14 U/L (15-37); Albumin 3.4 g/dL (3.4-5.0); Alkaline Phosphatase 72 U/L (45-117); BUN Blood Urea Nitrogen 17 mg/dL (7-18); Bicarbonate 29 mmol/L (21-32); Bilirubin Direct 0.3 mg/dL (0-0.2); Bilirubin Total 0.9 mg/dL (0.2-1.0); Glucose Level 89 mg/dL (74-106); Magnesium 2.2 mg/dL (1.8-2.4); NT PRO-BNP 1304 pg/mL (<450); Potassium 3.4 mmol/L (3.5-5.1); Protein, Total 7.1 g/dL (6.4-8.2); Sodium Level 136 mmol/L (136-145); Troponin (Emerg Dept Use Only) < 0.02 ng/mL (0.0-0.045)
[2019-09-06] MEDS ORDERED: ASPIRIN 81 MG CHEWABLE TABLET ONE (19:58)
--- NOTE | 2019-09-06 20:03 | RAD REPORT ---
EXAM DESCRIPTION: RAD - Chest Single View - 09/06/2019 7:56 pm CLINICAL HISTORY: CHEST PAIN Chest pain. COMPARISON: Chest Single View dated 06/26/2019 FINDINGS: Portable technique limits examination quality. The lungs are grossly clear. The heart is normal in size. No displaced fractures.Single lead pacer/de fibrillator device noted. Portion of the left upper lobe is obscured by the pacer pack. IMPRESSION: No acute intrathoracic process suspected.
[2019-09-06] MEDS ORDERED: ALPRAZOLAM 0.25 MG TABLET PO PRN (20:52)
[2019-09-06] MEDS ORDERED: ACETAMINOPHEN 500 MG TAB PO PRN (20:52)
[2019-09-06] MEDS ORDERED: MORPHINE 4 MG/ML SYR IV PRN (20:52)
--- NOTE | 2019-09-06 21:30 | ER ---
Nurse's Notes [facility] Name: Raymundo Maldonado Age: 79 yrs Sex: Male : 1940 Arrival Date: 09/06/2019 Time: 18:24 Bed 6 Private MD: Diagnosis: Chest pain on breathing Presentation: 09/05 18:29 Chief complaint: Patient's son or daughter states: chest pain since yesterday, aa5 specially when taking a deep breath. Pt also reports slight cough but son reports it's pt's baseline. 18:29 Coronavirus screen: Surgical mask placed on patient. Patient moved to private room, aa5 placed in contact and droplet isolation with eye protection until further assessment. Patient reports a cough. Patient reports shortness of breath or difficulty breathing. Patient denies measured and/or subjective temperature greater than 100.4F prior to today's visit. Patient denies travel on a cruise ship or to a country the [facility] currently lists as an affected area. Patient denies contact with known and/or suspected case of COVID-19. Ebola Screen: Patient negative for fever greater than or equal to 101.5 degrees Fahrenheit, and additional compatible Ebola Virus Disease symptoms. Initial Sepsis Screen: Does the patient meet any 2 criteria? No. Patient's initial sepsis screen is negative. Does the patient have a suspected source of infection? No. Patient's initial sepsis screen is negative. Risk Assessment: Do you want to hurt yourself or someone else? Patient reports no desire to harm self or others. Onset of symptoms was August 2019. 18:29 Method Of Arrival: Ambulatory aa5 18:29 Acuity: GREGORY 2 aa5 Historical: - Allergies: 18:30 No Known Allergies; aa5 - Home Meds: 18:30 furosemide 40 mg oral tab once daily [Active]; Xarelto 15 mg oral tab daily [Active]; aa5 Toprol XL 50 mg Oral Tb24 1 tab once daily [Active]; lisinopril 2.5 mg Oral tab 1 tab once daily [Active]; atorvastatin 40 mg oral tab 1 tab once daily [Active]; - PMHx: 18:30 "heart problems"; aa5 - PSHx: 18:30 pacemaker; aa5 - Immunization history:: Adult Immunizations unknown. - Social history:: Smoking status: Patient denies any tobacco usage or history of. Patient/guardian denies using alcohol, street drugs, The patient lives with family. - Family history:: not pertinent. Screenin:10 Abuse screen: Denies threats or abuse. Nutritional screening: No deficits noted. jb4 Tuberculosis screening: No symptoms or risk factors identified. Fall Risk None identified. Assessment: 19:10 General: Appears in no apparent distress. comfortable, Behavior is calm, cooperative, jb4 appropriate for age. Pain: Complains of pain in mid-sternal area Pain radiates to left jaw Pain currently is 2 out of 10 on a pain scale. Neuro: Level of Consciousness is awake, alert, obeys commands, Oriented to person, place, time, situation. Cardiovascular: Patient's skin is warm and dry. Rhythm is sinus rhythm. Respiratory: Airway is patent Respiratory effort is even, unlabored, Respiratory pattern is regular, symmetrical. GI: No signs and/or symptoms were reported involving the gastrointestinal system. : No signs and/or symptoms were reported regarding the genitourinary system. EENT: No signs and/or symptoms were reported regarding the EENT system. Derm: Skin is intact, Skin is pink, warm \\T\\ dry. Musculoskeletal: Circulation, motion, and sensation intact. Range of motion: intact in all extremities. 20:15 Reassessment: Patient appears in no apparent distress at this time. Patient and/or jb4 family updated on plan of care and expected duration. Pain level reassessed. Patient is alert, oriented x 3, equal unlabored respirations, skin warm/dry/pink. 21:15 Reassessment: Patient appears in no apparent distress at this time. Patient and/or jb4 family updated on plan of care and expected duration. Pain level reassessed. Patient is alert, oriented x 3, equal unlabored respirations, skin warm/dry/pink. 22:15 Reassessment: Patient appears in no apparent distress at this time. Patient and/or jb4 family updated on plan of care and expected duration. Pain level reassessed. Patient is alert, oriented x 3, equal unlabored respirations, skin warm/dry/pink. 09/06 00:31 Reassessment: Patient appears in no apparent distress at this time. Patient and/or jb4 family updated on plan of care and expected duration. Pain level reassessed. Patient is alert, oriented x 3, equal unlabored respirations, skin warm/dry/pink. PT transferred up stairs via stretcher by household appliances service technician. Vital Signs: 09/05 18:30 BP 112 / 71; Pulse 86; Resp 18 S; Temp 97.0(O); Pulse Ox 100% on R/A; Pain 0/10; aa5 19:30 BP 117 / 67; Pulse 75; Resp 16; Pulse Ox 100% on R/A; jb4 20:15 BP 113 / 64; Pulse 73; Resp 19; Pulse Ox 100% on R/A; jb4 21:00 BP 103 / 90; Pulse 67; Resp 19; Pulse Ox 100% on R/A; jb4 21:45 BP 103 / 90; Pulse 71; Resp 18; Pulse Ox 100% ; jv1 22:20 BP 114 / 75; Pulse 68; Resp 17; Pulse Ox 100% on R/A; jb4 ED Course: 18:24 Patient arrived in ED. as 18:29 Arm band placed on Patient placed in an exam room, on a stretcher. aa5 18:35 Patient has correct armband on for positive identification. Placed in gown. Bed in low aa5 position. Call light in reach. Side rails up X2. full time on. Pulse ox on. NIBP on. Warm blanket given. Pillow given. 18:50 EKG done, by ED staff, reviewed by Jimmy Ordaz MD. aa5 18:50 Patient maintains SpO2 saturation greater than 95% on room air. aa5 18:55 Initial lab(s) drawn, by nj, sent to lab. Inserted saline lock: 20 gauge in right aa5 antecubital area, using aseptic technique. Blood collected. 19:10 Triage completed. aa5 19:14 Vilma Roy MD is Attending Physician. ma2 19:33 Valente Garcia, VIKASH is Primary Nurse. jb4 19:57 XRAY Chest (1 view) In Process Unspecified. EDMS 21:30 Vilma Yang MD is Hospitalizing Provider. ma2 22:15 No provider procedures requiring assistance completed. Patient admitted, IV remains in lp1 place. Administered Medications: 20:02 Drug: Aspirin Chewable Tablet 324 mg Route: PO; jb4 Outcome: 21:30 Decision to Hospitalize by Provider. ma2 22:15 Admitted to Med/surg room 211, with chart, Report called to VIKASH Jerome lp1 22:15 Condition: stable 22:15 Instructed on the need for admit. 22:53 Patient left the ED. jb4 Signatures: Dispatcher [employer] Chantel Hawk Audri, RN RN aa5 Negra Cline RN RN lp1 Valente Garcia RN RN jb4 Vilma Roy MD MD ma2 Radha Dorantes RN RN jv1
--- NOTE | 2019-09-06 21:30 | EDPHYS ---
Physician Documentation [facility] Name: Raymundo Maldonado Age: 79 yrs Sex: Male : 1940 Arrival Date: 09/06/2019 Time: 18:24 Bed 6 Private MD: ED Physician Vilma Roy HPI: 09/05 21:28 This 79 yrs old Male presents to ER via Ambulatory with complaints of Chest ma2 Pain. 21:28 The patient or guardian reports chest pain that is located primarily in the substernal ma2 area. Onset: gradually, 1 day(s) ago. Associated signs and symptoms: Pertinent negatives: abdominal pain, dizziness, lower extremity pain. Severity of pain: At its worst the pain was mild in the emergency department the pain has improved. Historical: - Allergies: 18:30 No Known Allergies; aa5 - Home Meds: 18:30 furosemide 40 mg oral tab once daily [Active]; Xarelto 15 mg oral tab daily [Active]; aa5 Toprol XL 50 mg Oral Tb24 1 tab once daily [Active]; lisinopril 2.5 mg Oral tab 1 tab once daily [Active]; atorvastatin 40 mg oral tab 1 tab once daily [Active]; - PMHx: 18:30 "heart problems"; aa5 - PSHx: 18:30 pacemaker; aa5 - Immunization history:: Adult Immunizations unknown. - Social history:: Smoking status: Patient denies any tobacco usage or history of. Patient/guardian denies using alcohol, street drugs, The patient lives with family. - Family history:: not pertinent. ROS: 21:28 Constitutional: Negative for fever, chills, and weight loss. ma2 21:28 All other systems are negative. Exam: 21:28 Constitutional: This is a well developed, well nourished patient who is awake, alert, ma2 and in no acute distress. Head/Face: Normocephalic, atraumatic. Eyes: Pupils equal round and reactive to light, extra-ocular motions intact. Lids and lashes normal. Conjunctiva and sclera are non-icteric and not injected. Cornea within normal limits. Periorbital areas with no swelling, redness, or edema. ENT: Nares patent. No nasal discharge, no septal abnormalities noted. Tympanic membranes are normal and external auditory canals are clear. Oropharynx with no redness, swelling, or masses, exudates, or evidence of obstruction, uvula midline. Mucous membranes moist. Neck: Trachea midline, no thyromegaly or masses palpated, and no cervical lymphadenopathy. Supple, full range of motion without nuchal rigidity, or vertebral point tenderness. No Meningismus. Chest/axilla: Normal chest wall appearance and motion. Nontender with no deformity. No lesions are appreciated. Cardiovascular: Regular rate and rhythm with a normal S1 and S2. No gallops, murmurs, or rubs. Normal PMI, no JVD. No pulse deficits. Respiratory: Lungs have equal breath sounds bilaterally, clear to auscultation and percussion. No rales, rhonchi or wheezes noted. No increased work of breathing, no retractions or nasal flaring. Abdomen/GI: Soft, non-tender, with normal bowel sounds. No distension or tympany. No guarding or rebound. No evidence of tenderness throughout. Vital Signs: 18:30 BP 112 / 71; Pulse 86; Resp 18 S; Temp 97.0(O); Pulse Ox 100% on R/A; Pain 0/10; aa5 19:30 BP 117 / 67; Pulse 75; Resp 16; Pulse Ox 100% on R/A; jb4 20:15 BP 113 / 64; Pulse 73; Resp 19; Pulse Ox 100% on R/A; jb4 21:00 BP 103 / 90; Pulse 67; Resp 19; Pulse Ox 100% on R/A; jb4 21:45 BP 103 / 90; Pulse 71; Resp 18; Pulse Ox 100% ; jv1 22:20 BP 114 / 75; Pulse 68; Resp 17; Pulse Ox 100% on R/A; jb4 MDM: 19:15 Patient medically screened. ma2 21:28 Differential diagnosis: anxiety, gastroesophageal reflux disease (GERD). Differential ma2 diagnosis: gastroesophageal reflux disease (GERD), unstable angina. HEART Score: History:. CHAMP Risk Score: TOTAL SCORE = 3. Data reviewed: vital signs, nurses notes. Counseling: I had a detailed discussion with the patient and/or guardian regarding: the historical points, exam findings, and any diagnostic results supporting the discharge/admit diagnosis, the presence of at least one elevated blood pressure reading (>120/80) during this emergency department visit, the need for further work-up and treatment in the hospital. 09/05 18:57 Order name: Basic Metabolic Panel; Complete Time: 19:37 em1 09/05 18:57 Order name: CBC with Diff; Complete Time: 19:37 em1 09/05 18:57 Order name: LFT's; Complete Time: 19:37 em 09/05 18:57 Order name: Magnesium; Complete Time: 19:37 em1 09/05 18:57 Order name: NT PRO-BNP; Complete Time: 19:37 em09/05 18:57 Order name: PT-INR; Complete Time: 19:37 em 09/05 18:57 Order name: Troponin (emerg Dept Use Only); Complete Time: 19:37 em 09/05 18:57 Order name: XRAY Chest (1 view) [facility] 09/05 18:57 Order name: EKG; Complete Time: 18:57 [facility] 09/05 21:00 Order name: CONS Physician Consult [facility] 09/05 21:00 Order name: Echo with Doppler [facility] 09/05 21:00 Order name: EKG Electrocardiogram [facility] 09/05 21:00 Order name: Troponin I [facility] 09/05 18:57 Order name: Cardiac monitoring; Complete Time: 19:29 em 09/05 18:57 Order name: EKG - Nurse/Tech; Complete Time: 19:30 [facility] 09/05 18:57 Order name: IV Saline Lock; Complete Time: 19:30 [facility] 09/05 18:57 Order name: Labs collected and sent; Complete Time: 19:30 [facility] 09/05 18:57 Order name: O2 Per Protocol; Complete Time: 19:30 [facility] 09/05 18:57 Order name: O2 Sat Monitoring; Complete Time: 19:30 [facility] 09/05 21:00 Order name: EKG Electrocardiogram [facility] Administered Medications: 20:02 Drug: Aspirin Chewable Tablet 324 mg Route: PO; jb4 Disposition: 09/06/19 21:30 Hospitalization ordered by Vilma Yang for Observation. Preliminary diagnosis is Chest pain on breathing. - Bed requested for Telemetry/MedSurg (observation). - Status is Observation. jb4 - Condition is Stable. - Problem is new. - Symptoms are unchanged. Signatures: Dispatcher [employer] EDMS Cristina Ramos RN RN Sukh, Kelli ds1 Rivas, Jeffry em1 Yesenia Go, RN RN aa5 Valente Garcia RN RN jb4 Vilma Roy MD MD ma2 Corrections: (The following items were deleted from the chart) 21:35 21:30 Hospitalization Ordered by Vilma Yang MD for Observation. Preliminary mw diagnosis is Chest pain on breathing. Bed requested for Telemetry/MedSurg (observation). Status is Observation. Condition is Stable. Problem is new. Symptoms are unchanged. ma2 21:44 21:35 09/06/2019 21:30 Hospitalization Ordered by Vilma Yang MD for Observation. ds1 Preliminary diagnosis is Chest pain on breathing. Bed requested for Telemetry/MedSurg (observation). Status is Observation. Condition is Stable. Problem is new. Symptoms are unchanged. mw 22:53 21:44 09/06/2019 21:30 Hospitalization Ordered by Vilma Yang MD for Observation. jb4 Preliminary diagnosis is Chest pain on breathing. Bed requested for Telemetry/MedSurg (observation). Status is Observation. Condition is Stable. Problem is new. Symptoms are unchanged. ds1
[2019-09-06 23:02] VITALS: BMI 26.7
[2019-09-06] MEDS: METOPROLOL TAR 50 MG TAB PO SCH (23:35)
[2019-09-07 03:23] VITALS: O2SAT 97
[2019-09-07 06:18] LABS: Basophils % 0.3 % (0-1.3); Hematocrit 36.7 % (39.6-49.0); Lymphocytes % 18.6 % (15.3-44.8); MPV 9.5 fL (7.6-11.3); RBC Red Blood Cell Count 4.01 M/uL (4.33-5.43)
[2019-09-07 06:23] LABS: Potassium 3.4 mmol/L (3.5-5.1); Troponin I 0.03 ng/mL (0.0-0.045)
--- NOTE | 2019-09-07 07:35 | EKG ---
Test Date: 2019-09-06 Test Time: 18:48:18 Information Systems Coordinator: SHARON MEASUREMENT RESULTS: Intervals: Rate: 91 [place]: QRSD: 82 QT: 424 QTc: 521 [place]: P: IL: QRS: 52 T: 76 INTERPRETIVE STATEMENTS: Atrial fibrillation with premature ventricular or aberrantly conducted complexes Prolonged QT Abnormal ECG Compared to ECG 06/26/2019 16:40:47 Ventricular premature complex(es) now present Prolonged QT interval now present Ventricular-paced complex(es) or rhythm no longer present Electronically Signed On 09-07-19 07:34:42 CDT by Gopi Godwin
[2019-09-07] MEDS ORDERED: PNEUMOCOCCAL VACCINE 0.5 ML IMVAC ONE (08:00)
[2019-09-07] MEDS ORDERED: ENOXAPARIN 40 MG/0.4 ML SQ SCH (09:00)
[2019-09-07] MEDS ORDERED: ASPIRIN EC 81 MG TAB PO SCH (09:00)
[2019-09-07] MEDS: METOPROLOL TAR 50 MG TAB PO SCH (09:32)
--- NOTE | 2019-09-07 11:26 | P.HP ---
Certification for Inpatient Patient admitted to: Observation With expected LOS: <2 Midnights Patient will require the following post-hospital care: None Practitioner: I am a practitioner with admitting privileges, knowledge of patient current condition, hospital course, and medical plan of care. Services: Services provided to patient in accordance with Admission requirements found in Title 42 Section 412.3 of the Code of Federal Regulations Patient History Date of Service: 09/06/19 Reason for admission: chest pain rule out acute coronary syndrome History of Present Illness: See patient is a 79-year-old gentleman who came to the hospital with chest pain. Pain was mainly in the sternal region. Patient also has some reflux. Patient came into the hospital for further evaluation. In the emergency room patient had a troponin level that was negative. EKG did not reveal any acute abnormality. Patient will be admitted to the hospital because he has high risk factors for acute coronary syndrome. We will go ahead and do serial troponins and EKG at this time. If his workup is negative he should be able to discharge home later tomorrow. Allergies No Known Allergies Allergy (Verified 06/26/19 23:46) Home Medications: Atorvastatin Calcium 1 tab PO BEDTIME 06/27/19 Furosemide 40 mg PO DAILY 09/07/19 Lisinopril [Zestril] 2.5 mg PO DAILY 09/07/19 Metoprolol Succinate [Toprol Xl*] 1 tab PO DAILY 09/07/19 Rivaroxaban [Xarelto] 15 mg PO DAILY 09/07/19 - Past Medical/Surgical History Has patient received pneumonia vaccine in the past: No Diabetic: No -: HTN -: Cardiac disease; SSS -: Pacemaker -: Prostate surg - Family History Father History Unknown: Yes Mother History Unknown: Yes - Social History Smoking Status: Never smoker Alcohol use: No CD- Drugs: No Caffeine use: No Place of Residence: Home Review of Systems 10-point ROS is otherwise unremarkable Physical Examination - Vital Signs Temperature: 97.8 F Blood Pressure: 122/76 Pulse: 67 Respirations: 15 Pulse Ox (%): 97 - Physical Exam General: Alert, In no apparent distress, Oriented x3 HEENT: Atraumatic, PERRLA, Mucous membr. moist/pink, EOMI, Sclerae nonicteric Neck: Supple, 2+ carotid pulse no bruit, No LAD, Without JVD or thyroid abno rmality Respiratory: Clear to auscultation bilaterally, Normal air movement Cardiovascular: Regular rate/rhythm, Normal S1 S2, No murmurs Gastrointestinal: Normal bowel sounds, Soft and benign, Non-distended, No tenderness Musculoskeletal: No clubbing, No swelling, No tenderness Integumentary: No rashes Neurological: Normal gait, Normal speech, Normal strength at 5/5 x4 extr, Normal tone, Sensation intact, Cranial nerves 3-12 intact, Normal affect Lymphatics: No axilla or inguinal lymphadenopathy - Studies Laboratory Data (last 24 hrs) 09/06/19 18:55: PT 14.6 H, INR 1.24 09/06/19 18:55: WBC 7.5, Hgb 12.7 L, Hct 38.0 L, Plt Count 205 09/06/19 18:55: Sodium 136, Potassium 3.4 L, BUN 17, Creatinine 1.11, Glucose 89, Magnesium 2.2, Total Bilirubin 0.9, AST 14 L, ALT 22, Alkaline Phosphatase 72 Assessment & Plan - Problems (Diagnosis) (1) Chest pain, rule out acute myocardial infarction Current Visit: Yes Status: Acute (2) Sick sinus syndrome Current Visit: Yes Status: Acute (3) Bradycardia Current Visit: No Status: Acute (4) Chronic atrial fibrillation Current Visit: No Status: Acute (5) History of pacemaker Current Visit: No Status: Acute - Plan 1. Serial troponins and EKG 2. Cardiology consultation 3. Echocardiogram and outpatient stress test(pending cardiology evaluation) 4. Anti-platelet therapy, anti coagulation, beta-wilner, statin, and O2 as needed 5. IV morphine for pain 6. Nitro p.r.n. Discharge Plan: Home Plan to discharge in: 24 Hours - Advance Directives Does patient have a Living Will: No Does patient have a Durable POA for Healthcare: No - Code Status/Comfort Care Code Status Assessed: Yes Code Status: Full Code Critical Care: No Time Spent Managing PTS Care (In Minutes): 40
--- NOTE | 2019-09-07 11:30 | P.DS ---
Discharge Date: 09/07/19 Disposition: ROUTINE DISCHARGE Discharge Condition: GOOD Reason for Admission: chest pain rule out acute coronary syndrome - Problems (1) Chest pain, rule out acute myocardial infarction Current Visit: Yes Status: Acute (2) Sick sinus syndrome Current Visit: Yes Status: Acute (3) Bradycardia Current Visit: No Status: Acute (4) Chronic atrial fibrillation Current Visit: No Status: Acute (5) History of pacemaker Current Visit: No Status: Acute Brief History of Present Illness: See patient is a 79-year-old gentleman who came to the hospital with chest pain. Pain was mainly in the sternal region. Patient also has some reflux. Patient came into the hospital for further evaluation. In the emergency room patient had a troponin level that was negative. EKG did not reveal any acute abnormality. Patient will be admitted to the hospital because he has high risk factors for acute coronary syndrome. We will go ahead and do serial troponins and EKG at this time. If his workup is negative he should be able to discharge home later tomorrow. Hospital Course: . Patient has done well during hospital stay. Patient's troponins and EKG are negative. At this time, patient is stable for discharge home with outpatient follow-up. Vital Signs/Physical Exam: Temp Pulse Resp BP Pulse Ox 97.8 F 67 15 122/76 97 09/07/19 11:26 09/07/19 11:26 09/07/19 11:26 09/07/19 11:26 09/07/19 11:26 General: Alert, In no apparent distress, Oriented x3 Laboratory Data at Discharge: WBC 5.5 K/uL (4.3-10.9) D 09/07/19 05:15 Hgb 12.4 g/dL (13.6-17.9) L 09/07/19 05:15 Hct 36.7 % (39.6-49.0) L 09/07/19 05:15 Plt Count 200 K/uL (152-406) 09/07/19 05:15 PT 14.6 SECONDS (9.5-12.5) H 09/06/19 18:55 INR 1.24 09/06/19 18:55 Sodium 141 mmol/L (136-145) 09/07/19 05:15 Potassium 3.4 mmol/L (3.5-5.1) L 09/07/19 05:15 BUN 19 mg/dL (7-18) H 09/07/19 05:15 Creatinine 1.06 mg/dL (0.55-1.3) 09/07/19 05:15 Glucose 99 mg/dL (74-106) 09/07/19 05:15 Magnesium 2.2 mg/dL (1.8-2.4) 09/06/19 18:55 Total Bilirubin 0.9 mg/dL (0.2-1.0) 09/06/19 18:55 AST 14 U/L (15-37) L 09/06/19 18:55 ALT 22 U/L (12-78) 09/06/19 18:55 Alkaline Phosphatase 72 U/L (45-117) 09/06/19 18:55 Troponin I 0.03 ng/mL (0.0-0.045) 09/07/19 05:15 Triglycerides 71 mg/dL (<150) 09/07/19 05:15 Cholesterol 115 mg/dL (<200) 09/07/19 05:15 HDL Cholesterol 46 mg/dL (40-60) 09/07/19 05:15 Cholesterol/HDL Ratio 2.50 09/07/19 05:15 Home Medications: Atorvastatin Calcium 1 tab PO BEDTIME 06/27/19 Furosemide 40 mg PO DAILY 09/07/19 Lisinopril [Zestril] 2.5 mg PO DAILY 09/07/19 Metoprolol Succinate [Toprol Xl*] 1 tab PO DAILY 09/07/19 Rivaroxaban [Xarelto] 15 mg PO DAILY 09/07/19 Patient Discharge Instructions: OK TO DC IV AND DC HOME. FOLLOW-UP WITH PRIMARY CARE PROVIDER IN 1-2 WEEKS. FOLLOW-UP WITH CARDIOLOGY IN 1-2 WEEKS. RETURN TO THE ER IF symptoms worsens. CALL DR. CROCKETT AT [phone] IF ANY QUESTIONS REGARDING HOSPITAL STAY. PLEASE CALL THE FLOOR AT [phone] IF ANY MEDICATION OR NURSING QUESTIONS. Diet: AHA Activity: Fall precautions Time spent managing pt's care (in minutes): 20
[2019-09-07 13:48] VITALS: BP 108/54; TEMP 97.6
--- NOTE | 2019-09-07 14:33 | EKG ---
Test Date: 2019-09-07 Test Time: 09:07:43 Traffic Controller Cable: THERESA MEASUREMENT RESULTS: Intervals: Rate: 65 [place]: QRSD: 80 QT: 452 QTc: 470 [place]: P: [place]: QRS: 50 T: 103 INTERPRETIVE STATEMENTS: Atrial fibrillation Nonspecific T wave abnormality, probably digitalis effect Prolonged QT Abnormal ECG Compared to ECG 09/06/2019 18:48:18 T-wave abnormality now present Ventricular premature complex(es) no longer present Electronically Signed On 09-07-19 14:32:50 CDT by Gopi Godwin
--- NOTE | 2019-09-07 14:43 | ECHO ---
HEIGHT: 5 ft 2 in WEIGHT: 146 lb 2 oz DATE OF STUDY: 09/07/[address]: Vilma Yang MD 2-DIMENSIONAL: YES M.MODE: YES DOPPLER: YES COLOR FLOW: YES TDS: PORTABLE: DEFINITY: BUBBLE STUDY: DIAGNOSIS: CHEST PAIN, RULE OUT ACUTE CORNARY SYNDROME CARDIAC HISTORY: CATHERIZATION: NO SURGERY: NO PROSTHETIC VALVE: NO PACEMAKER: YES MEASUREMENTS (cm) DIASTOLIC (NORMALS) SYSTOLIC (NORMALS) IVSd 0.7 (0.6-1.2) LA Diam 3.0 (1.9-4.0) LVEF 32% LVIDd 4.1 (3.5-5.7) LVIDs 3.5 (2.0-3.5) %FS 15% LVPWd 0.7 (0.6-1.2) Ao Diam 3.1 (2.0-3.7) 2 DIMENSIONAL ASSESSMENT: RIGHT ATRIUM: NORMAL LEFT ATRIUM: NORMAL RIGHT VENTRICLE: PERMENANT PACEMAKER LEFT VENTRICLE: NORMAL SIZE TRICUSPID VALVE: NORMAL MITRAL VALVE: NORMAL PULMONIC VALVE: NORMAL AORTIC VALVE: SCLEROSIS PERICARDIAL EFFUSION: NONE AORTIC ROOT: NORMAL LEFT VENTRICULAR WALL MOTION: MODERATE TO SEVERE GLOBAL HYPOKINESIS DOPPLER/COLOR FLOW: MODERATE AORTIC REGURGITATION. COMMENTS: MODERATE TO SEVERE GLOBAL HYPOKINESIS. MODERATE AORTIC REGURGITATION. EJECTION FRACTION 32-35%. PERMENANT PACEMAKER IN RIGHT VENTRICULAR APEX. AORTIC SCLEROSIS, NO STENOSIS. TECHNOLOGIST: MARK ANDERSON
--- NOTE | 2019-09-07 18:18 | CON ---
Date of Consultation: 09/07/2019 Patient was admitted to Dr. Yang's service on 09/06/2019. I saw the patient on 09/07/2019. Reason For Consultation: Chest pain. History Of Present Illness: Mr. Low is an 79-year-old Latin-[place] male, has a history of hype rtension, dyslipidemia, coronary artery disease, chronic renal disease, atrial fibrillation, and a pa cemaker. He came in with midsternal chest pain that radiating to the back with some nausea, but no d iaphoresis. He denied PND, orthopnea, pedal edema, palpitation, or syncope. Denied any fever or chi lls or cough. Past Medical History: As stated earlier. Allergies: NONE. Review of Systems: Negative. Social History: Negative. Family History: Negative. Medications: Include Lasix, Xarelto, Toprol, lisinopril, and Lipitor. Physical Examination: General: He was in no acute distress today. He was in paced rhythm. HEENT: Negative. Neck: Supple with no bruit. Chest: Clear. Cardiac: Reveals a paced rhythm. Abdomen: Benign. Extremities: Reveal no clubbing, cyanosis, or edema. Diagnostic Data: His EKG showed a paced rhythm with underlying atrial fibrillation. Chest x-ray was normal. Troponin was negative. Potassium is 3.4, creatinine is 1.06, hemoglobin is 12.4. BNP was 1304. Impression And Plan: 1.Atypical chest pain, probably gastroesophageal reflux disease. He has normal chest x-ray, paced r hythm on the EKG. Negative troponin. Echocardiogram is pending. 2.Hypokalemia that needs to be supplemented. 3.Chronic atrial fibrillation, on Xarelto, stable. 4.Hypertension, well controlled. 5.Dyslipidemia, well controlled. 6.Coronary artery disease, stable. Patient has ruled out. If his echocardiogram is unremarkable, I can probably send him home today and [facility] and I will see him in the near future. IGNACIO/JESENIA Voice ID: [id number] Report ID: [id number]
== END 2019-09-07 13:51 | disposition home or self-care (01) ==
LOC: ER 18:22 → ERHOLD 21:03 → 2ND 22:16
PROVIDERS: ADMIT Hospitalist; ATTEND Hospitalist
DX: R07.89 Other chest pain (principal); I48.20 Chronic atrial fibrillation, unspecified; I49.5 Sick sinus syndrome; R00.1 Bradycardia, unspecified; I12.9 Hypertensive chronic kidney disease with stage 1 through stage 4 chronic kidney disease, or unspecified chronic kidney disease; N18.9 Chronic kidney disease, unspecified; I25.10 Atherosclerotic heart disease of native coronary artery without angina pectoris; E78.5 Hyperlipidemia, unspecified; K21.9 Gastro-esophageal reflux disease without esophagitis; E87.6 Hypokalemia; Z95.0 Presence of cardiac pacemaker; Z79.01 Long term (current) use of anticoagulants
CPT/HCPCS: 36415; 71045; 80048; 80061; 80076; 83735; 83880; 84484; 85025; 85610; 90670; 93005; 93306; 99285; G0378; J1650